=== PATIENT | female | born 1990 | race Two or more races ===

== ENCOUNTER 2022-05-12 07:00 | Inpatient (IN) | payer OTHER ==
[~2022-05-12] VITALS: Ht 157.5 cm; Wt 47.6 kg
== END 2022-05-15 09:54 | disposition home or self-care (01) | DRG 743 ==
LOC: O/R 05-13 05:08 → OB/GYN 05-13 05:08 → SURG 05-13 07:00 → O/R 05-13 07:00 → SURG 05-13 07:15 → OB/GYN 05-13 10:57
PROVIDERS: ADMIT Obstetrics & Gynecology; ATTEND Obstetrics & Gynecology
PROC: 0UT10ZZ Resection of Left Ovary, Open Approach (ICD-10-PCS; 2022-05-13)
PROC: 0DNW0ZZ Release Peritoneum, Open Approach (ICD-10-PCS; 2022-05-13)
PROC: 0DN80ZZ Release Small Intestine, Open Approach (ICD-10-PCS; 2022-05-13)
PROC: 0UT60ZZ Resection of Left Fallopian Tube, Open Approach (ICD-10-PCS; principal; 2022-05-13 07:15)
DX: D27.1 Benign neoplasm of left ovary (principal); Z20.822 Contact with and (suspected) exposure to COVID-19; N73.6 Female pelvic peritoneal adhesions (postinfective)

== ENCOUNTER 2024-08-23 18:19 | Emergency (ER) | payer OTHER ==
[~2024-08-23] VITALS: Ht 157.5 cm; Wt 55.3 kg
[2024-08-23] MEDS ORDERED: PRENATABS FA T1 EACH PO (18:45)
[2024-08-23] MEDS ORDERED: FAMOTIDINE/PF 20 MG in 0.9 % SODIUM CHLORIDE 8 ML IV PUSH STA (18:55)
[2024-08-23] MEDS ORDERED: ONDANSETRON HCL 2 MG/ML VIAL IV ONE (19:00)
[2024-08-23] MEDS ORDERED: RINGERS SOLUTION,LACTATED 1,000 ML IV SCH (19:00)
[2024-08-23 19:46] LABS: HEMATOCRIT 39.7 % (36.0-45.00); MEAN CELL VOLUME 90.9 fL (80.00-100.00); MEAN CORPUSCULAR HGB CONC 35.2 g/dl (32.0-36.0); PLATELET COUNT 259 K/uL (150-450); RED BLOOD COUNT 4.36 M/uL (4.00-6.00); RED CELL DISTRIBUTION WIDTH 13.3 % (11.5-14.5)
[2024-08-23 20:29] LABS: URINE APPEARANCE Cloudy; URINE BILIRRUBIN Negative (NEGATIVE); URINE BLOOD Small; URINE COLOR Yellow; URINE GLUCOSE Negative (NEGATIVE); URINE LEUKOCYTE Moderate; URINE NITRATE Negative; URINE PROTEIN Negative (NEGATIVE); URINE UROBILINOGEN 0.2 E.U./dl
[2024-08-23 20:33] LABS: ALBUMIN 3.9 gm/dL (3.4-5.0); BILIRUBIN TOTAL 0.46 mg/dL (0.3-1.2); CALCIUM 8.8 mg/dL (8.5-10.1); CREATININE SERUM 0.42 mg/dL (0.55-1.02); GFR 173.76; GLOBULINA 3.7 G/DL (2.4-3.5); POTASSIUM 3.86 mEq/L (3.5-5.1); TOTAL PROTEIN 7.6 gm/dL (6.4-8.2)
[2024-08-23 20:33] LABS: URINE BACTERIA 6600.9 uL (0.0-1933); URINE EPITHELIAL CELLS 163.8 uL (0.0-38.8); URINE RBC 19.8 uL (0.0-20.8); URINE WBC 153.6 uL (0.0-23.2)
[2024-08-23 20:46] LABS: URINE CAST 1.06 uL (0.0-1.40); URINE KETONE >=160 (NEGATIVE)
[2024-08-23 20:47] LABS: URINE EPITHELIAL CELLS 0-4 /HPF
[2024-08-23] MEDS ORDERED: CEFTRIAXONE SODIUM 1,000 MG VIAL IV ONE (21:00)
[2024-08-23] MEDS ORDERED: NITROFURANTOIN100 MG PO (21:31)
[2024-08-23] MEDS ORDERED: ONDANSETRON ODT8 MG PO (21:31)
[2024-08-23] MEDS ORDERED: PEPCID AC20 MG PO (21:31)
[2024-08-23] MEDS ORDERED: METOCLOPRAMIDE HCL 10 MG in DEXTROSE 5 % IN WATER 50 ML IV ONE (21:45)
== END 2024-08-23 22:36 | disposition home or self-care (01) ==
LOC: ER 18:21
PROVIDERS: General Practice
DX: O21.0 Mild hyperemesis gravidarum (principal); N39.0 Urinary tract infection, site not specified; Z88.0 Allergy status to penicillin; Z91.013 Allergy to seafood

== ENCOUNTER 2024-09-25 08:27 | Outpatient (CLI) | payer OTHER ==
[~2024-09-25 08:27] MED LIST: NITROFURANTOIN100 MG PO; ONDANSETRON ODT8 MG PO; PEPCID AC20 MG PO; PRENATABS FA T1 EACH PO
== END 2024-09-25 08:28 | disposition home or self-care (01) ==
LOC: PRENATAL 08:27
PROVIDERS: ATTEND Obstetrics & Gynecology Maternal & Fetal Medicine
DX: O36.80X0 Pregnancy with inconclusive fetal viability, not applicable or unspecified (principal); Z36.82 Encounter for antenatal screening for nuchal translucency; Z14.8 Genetic carrier of other disease; Z3A.13 13 weeks gestation of pregnancy

== ENCOUNTER 2024-10-03 17:20 | Emergency (ER) | payer OTHER ==
[~2024-10-03] VITALS: Ht 162.6 cm; Wt 72.6 kg
[2024-10-03] MEDS ORDERED: FOLIC ACID20 MG (17:33)
[2024-10-03] MEDS ORDERED: ONDANSETRON HCL 2 MG/ML VIAL IV ONE (18:00)
[2024-10-03] MEDS ORDERED: MEPERIDINE HCL/PF 25 MG/ML VIAL IV ONE (18:00)
[2024-10-03 18:34] LABS: HEMATOCRIT 28.8 % (36.0-45.00); HEMOGLOBIN 10.2 g/dL (12.0-15.00); MEAN CELL VOLUME 92.4 fL (80.00-100.00); MEAN CORPUSCULAR HEMOGLOBIN 32.7 pg (27.00-32.0); MEAN CORPUSCULAR HGB CONC 35.4 g/dl (32.0-36.0); PLATELET COUNT 199 K/uL (150-450); RED BLOOD COUNT 3.11 M/uL (4.00-6.00); RED CELL DISTRIBUTION WIDTH 13.7 % (11.5-14.5)
[2024-10-03 19:45] LABS: ALBUMIN 2.8 gm/dL (3.4-5.0); BILIRUBIN TOTAL 0.18 mg/dL (0.3-1.2); CALCIUM 7.5 mg/dL (8.5-10.1); POTASSIUM 3.04 mEq/L (3.5-5.1); TOTAL PROTEIN 5.8 gm/dL (6.4-8.2)
[2024-10-03 19:50] LABS: CREATININE SERUM 0.28 mg/dL (0.55-1.02); GFR 277.44
[2024-10-04 00:42] LABS: PH,URINE 6.5 (5.0-8.0); URINE APPEARANCE Cloudy; URINE BILIRRUBIN Negative (NEGATIVE); URINE BLOOD Negative; URINE COLOR Yellow; URINE GLUCOSE Negative (NEGATIVE); URINE LEUKOCYTE Moderate; URINE NITRATE Negative; URINE PROTEIN Negative (NEGATIVE); URINE UROBILINOGEN 0.2 E.U./dl
[2024-10-04 00:46] LABS: URINE BACTERIA 5118.6 uL (0.0-1933); URINE RBC 3.9 uL (0.0-20.8); URINE WBC 161.4 uL (0.0-23.2)
[2024-10-04 02:13] LABS: URINE CAST 0.58 uL (0.0-1.40); URINE EPITHELIAL CELLS > 201.7 uL (0.0-38.8); URINE KETONE 40 (NEGATIVE)
== END 2024-10-03 23:08 | disposition home or self-care (01) ==
LOC: ER 17:23
PROVIDERS: General Practice
DX: Z34.90 Encounter for supervision of normal pregnancy, unspecified, unspecified trimester (principal); R10.2 Pelvic and perineal pain; R10.9 Unspecified abdominal pain; Z88.0 Allergy status to penicillin; Z91.013 Allergy to seafood

== ENCOUNTER 2024-11-09 10:13 | Outpatient (CLI) | payer OTHER ==
[~2024-11-09 10:13] MED LIST changes: +FOLIC ACID20 MG
== END 2024-11-09 10:14 | disposition home or self-care (01) ==
LOC: PRENATAL 10:13
PROVIDERS: ATTEND Obstetrics & Gynecology Maternal & Fetal Medicine
DX: O44.00 Complete placenta previa NOS or without hemorrhage, unspecified trimester (principal); Z3A.21 21 weeks gestation of pregnancy

== ENCOUNTER 2025-01-06 16:59 | Emergency (ER) | payer OTHER ==
[~2025-01-06] VITALS: Ht 157.5 cm; Wt 55.8 kg
[2025-01-06] MEDS ORDERED: 0.9 % SODIUM CHLORIDE 1,000 ML IV SCH (18:45)
[2025-01-06] MEDS ORDERED: ONDANSETRON HCL 2 MG/ML VIAL IV ONE (18:45)
[2025-01-06] MEDS ORDERED: HYOSCYAMINE SULFATE 0.125 MG TAB.SUBL SL ONE (18:45)
[2025-01-06] MEDS ORDERED: FAMOTIDINE/PF 20 MG/2 ML VIAL IV ONE (18:45)
[2025-01-06 19:22] LABS: HEMOGLOBIN 9.7 g/dL (12.0-15.00); MEAN CELL VOLUME 90.3 fL (80.00-100.00); MEAN CORPUSCULAR HEMOGLOBIN 31.1 pg (27.00-32.0); MEAN CORPUSCULAR HGB CONC 34.5 g/dl (32.0-36.0); PLATELET COUNT 247 K/uL (150-450); RED CELL DISTRIBUTION WIDTH 13.2 % (11.5-14.5)
[2025-01-06 20:16] LABS: PH,URINE 5.5 (5.0-8.0); URINE APPEARANCE Cloudy; URINE BILIRRUBIN Negative (NEGATIVE); URINE BLOOD Negative; URINE COLOR Yellow; URINE GLUCOSE Negative (NEGATIVE); URINE LEUKOCYTE Trace; URINE NITRATE Negative; URINE PROTEIN 30 (NEGATIVE)
[2025-01-06 20:21] LABS: URINE CAST 3.09 uL (0.0-1.40); URINE EPITHELIAL CELLS 65.2 uL (0.0-38.8); URINE RBC 7.8 uL (0.0-20.8); URINE WBC 157.5 uL (0.0-23.2)
[2025-01-06 20:33] LABS: URINE BACTERIA > 9821.5 uL (0.0-1933); URINE KETONE >=160 (NEGATIVE)
[2025-01-06 20:35] LABS: CALCIUM 8.6 mg/dL (8.5-10.1); CREATININE SERUM 0.3 mg/dL (0.55-1.02); GFR 256.2; POTASSIUM 3.59 mEq/L (3.5-5.1)
== END 2025-01-06 21:11 | disposition home or self-care (01) ==
LOC: ER 17:02
PROVIDERS: Emergency Medicine
DX: O99.619 Diseases of the digestive system complicating pregnancy, unspecified trimester (principal); K92.89 Other specified diseases of the digestive system; K52.9 Noninfective gastroenteritis and colitis, unspecified; O21.0 Mild hyperemesis gravidarum; Z3A.00 Weeks of gestation of pregnancy not specified; Z88.0 Allergy status to penicillin; Z91.013 Allergy to seafood

== ENCOUNTER → 2025-02-01 13:39 | Outpatient (CLI) | payer OTHER | END | disposition home or self-care (01) | LOC: PRENATAL 13:39 | PROVIDERS: ATTEND Obstetrics & Gynecology Maternal & Fetal Medicine | DX: O26.849 Uterine size-date discrepancy, unspecified trimester (principal); O36.8199 Decreased fetal movements, unspecified trimester, other fetus; O99.019 Anemia complicating pregnancy, unspecified trimester; Z3A.34 34 weeks gestation of pregnancy ==

== ENCOUNTER 2025-03-05 15:13 | Outpatient (CLI) | payer OTHER | END 2025-03-05 15:14 | disposition home or self-care (01) | LOC: PRENATAL 15:13 | PROVIDERS: ATTEND Obstetrics & Gynecology Maternal & Fetal Medicine | DX: O26.849 Uterine size-date discrepancy, unspecified trimester (principal); O36.8199 Decreased fetal movements, unspecified trimester, other fetus; O99.019 Anemia complicating pregnancy, unspecified trimester; O36.60X0 Maternal care for excessive fetal growth, unspecified trimester, not applicable or unspecified; Z3A.38 38 weeks gestation of pregnancy ==

== ENCOUNTER 2025-03-07 21:36 | Inpatient (IN) | payer OTHER ==
[~2025-03-07] VITALS: Ht 157.5 cm; Wt 2.7 kg
[2025-03-07 20:50] VITALS: BP 110/80
[2025-03-07] MEDS ORDERED: CEFAZOLIN SODIUM 1,000 MG VIAL IV ONE (22:00)
[2025-03-07] MEDS ORDERED: RINGERS SOLUTION,LACTATED 1,000 ML IV SCH (22:00)
[2025-03-07] MEDS ORDERED: BETAMETHASONE ACETATE,SOD PHOS 30 MG/5 ML ML ONE (22:05)
[2025-03-07] MEDS ORDERED: BETAMETHASONE ACETATE,SOD PHOS 30 MG/5 ML ML IM STA (22:26)
[2025-03-07 23:10] LABS: URINE APPEARANCE Clear; URINE BILIRRUBIN Negative (NEGATIVE); URINE BLOOD Negative; URINE COLOR Yellow; URINE GLUCOSE Negative (NEGATIVE); URINE KETONE Negative (NEGATIVE); URINE LEUKOCYTE Negative; URINE NITRATE Negative; URINE PROTEIN Negative (NEGATIVE); URINE UROBILINOGEN 0.2 E.U./dl
[2025-03-07 23:14] LABS: URINE BACTERIA 255.6 uL (0.0-1933); URINE EPITHELIAL CELLS 7.5 uL (0.0-38.8); URINE RBC 3.6 uL (0.0-20.8); URINE WBC 7.1 uL (0.0-23.2)
[2025-03-07 23:17] LABS: BASO % 0.6 % (0.1-1.2); EOS # 0.03 (0.04-0.54); EOS % 0.5 % (0.7-7.0); HEMATOCRIT 28.3 % (34.1-44.9); LYMPH % 19.6 % (19.3-53.1); MEAN CORPUSCULAR HEMOGLOBIN 25.6 pg (25.6-32.2); MONO # 0.49 (0.24-0.82); MONO % 7.4 % (4.7-12.5); NEUT # 4.72 (1.56-6.13); NEUT % 71.3 % (34.0-71.1); PLATELET COUNT 218 K/uL (163-369); RED BLOOD COUNT 3.51 M/uL (3.93-5.22); RED CELL DISTRIBUTION WIDTH 14.6 % (11.6-14.4)
[2025-03-07 23:28] LABS: INR 0.94; PROTHROMBIN TIME 10.3 SECONDS (9.0-11.5)
[2025-03-07 23:37] LABS: ALBUMIN 2.5 gm/dL (3.4-5.0); BILIRUBIN TOTAL 0.32 mg/dL (0.3-1.2); CALCIUM 8.2 mg/dL (8.5-10.1); CREATININE SERUM 0.54 mg/dL (0.55-1.02); GFR 129.23; POTASSIUM 3.9 mEq/L (3.5-5.1); TOTAL PROTEIN 6.5 gm/dL (6.4-8.2)
[2025-03-07 23:44] VITALS: BP 103/62
[2025-03-08] MEDS ORDERED: CEFAZOLIN SODIUM 1,000 MG VIAL IV SCH (02:00)
[2025-03-08 04:11] VITALS: BP 101/66
[2025-03-08] MEDS ORDERED: BETAMETHASONE ACETATE,SOD PHOS 30 MG/5 ML ML IM NR (07:00)
[2025-03-08 07:33] VITALS: BP 106/75
[2025-03-08] MEDS ORDERED: OXYTOCIN 20 UNITS/500ML RL PIGGYBAG IV ONE (07:54)
[2025-03-08] MEDS ORDERED: OXYTOCIN 500 ML IV SCH (08:30)
[2025-03-08 11:54] VITALS: BP 112/63
[2025-03-08] MEDS ORDERED: ERYTHROMYCIN BASE OPHT 1GM EACH TUBE OP ONE (12:49)
[2025-03-08] MEDS ORDERED: OXYTOCIN 10 UNITS/ML VIAL ONE ×2 (12:50→17:54)
[2025-03-08] MEDS ORDERED: SUGAMMADEX SODIUM 200 MG/2 ML VIAL IV ONE (14:57)
[2025-03-08] MEDS ORDERED: MORPHINE SULFATE 4 MG/ML CARTRIDGE IV PRN (15:30)
[2025-03-08] MEDS ORDERED: MORPHINE SULFATE 4 MG/ML VIAL IV ONE ×2 (16:15→17:30)
[2025-03-08] MEDS ORDERED: DOCUSATE SODIUM 100MG CAP PO SCH (17:00)
[2025-03-08] MEDS ORDERED: RINGERS SOLUTION,LACTATED 1,000 ML IV SCH (17:30)
[2025-03-08] MEDS ORDERED: OXYTOCIN 1,000 ML IV SCH (17:30)
[2025-03-08] MEDS ORDERED: SIMETHICONE 125 MG CAPSULE PO SCH (18:00)
[2025-03-08 18:55] VITALS: BP 104/70
[2025-03-08 19:08] LABS: BASO % 0.2 % (0.1-1.2); HEMOGLOBIN 9.1 g/dL (11.2-15.7); LYMPH # 1.02 (1.18-3.74); MEAN CORPUSCULAR HEMOGLOBIN 25.2 pg (25.6-32.2); MONO # 1.27 (0.24-0.82); MONO % 7.5 % (4.7-12.5); NEUT # 14.41 (1.56-6.13); NEUT % 85.2 % (34.0-71.1); PLATELET COUNT 203 K/uL (163-369); RED BLOOD COUNT 3.61 M/uL (3.93-5.22); RED CELL DISTRIBUTION WIDTH 14.6 % (11.6-14.4)
[2025-03-09 02:40] VITALS: BP 109/72
[2025-03-09 08:00] VITALS: BP 119/77
[2025-03-09] MEDS ORDERED: IBUprofen 400 MG TABLET PO SCH (09:00)
[2025-03-09 16:03] VITALS: BP 116/75
[2025-03-09] MEDS ORDERED: CITRIC ACID/SODIUM CITRATE 30 ML BLIST.PACK PO NR (17:00)
[2025-03-09] MEDS ORDERED: FAMOTIDINE/PF 20 MG/2 ML VIAL IV NR (17:00)
[2025-03-09 20:11] VITALS: BP 119/83
[2025-03-10 01:41] VITALS: BP 120/81
[2025-03-10 08:25] VITALS: BP 122/85
[2025-03-10 16:18] VITALS: BP 110/74
[2025-03-11 01:13] VITALS: BP 111/78
[2025-03-11 08:10] VITALS: BP 123/84
== END 2025-03-11 13:52 | disposition home or self-care (01) | DRG 788 ==
LOC: LDR 21:36 → O/R 03-08 14:10 → OB/GYN 03-08 16:06
PROVIDERS: ADMIT Obstetrics & Gynecology; ATTEND Obstetrics & Gynecology
PROC: 4A1HXCZ Monitoring of Products of Conception, Cardiac Rate, External Approach (ICD-10-PCS; 2025-03-07)
PROC: 10D00Z1 Extraction of Products of Conception, Low, Open Approach (ICD-10-PCS; principal; 2025-03-08 13:00)
DX: O60.14X0 Preterm labor third trimester with preterm delivery third trimester, not applicable or unspecified (principal); Z3A.36 36 weeks gestation of pregnancy; Z37.0 Single live birth